=== PATIENT | female | born 1975 | race Caucasian/White ===

== ENCOUNTER 2018-06-24 10:10 | Inpatient (IN) | payer MEDICAID ==
[2018-06-24 10:54] LABS: BASO % 0.7 % (0.0-2.0); EOS # 0.1 K/uL (0.0-0.7); EOS % 1.9 % (0.0-4.0); HEMOGLOBIN 12.8 g/dL (11.0-16.0); LYMPH # 2.2 K/uL (1.0-4.3); LYMPH % 30.6 % (20.0-40.0); MEAN CELL VOLUME 84.9 fL (81.0-99.0); MEAN CORPUSCULAR HEMOGLOBIN 29.4 pg (27.0-31.0); MEAN CORPUSCULAR HGB CONC 34.7 g/dL (33.0-37.0); MEAN PLATELET VOLUME 7.5 fL (7.2-11.7); MONO # 0.6 K/uL (0.0-0.8); MONO % 8.1 % (0.0-10.0); NEUT # 4.1 K/uL (1.8-7.0); NEUT % 58.7 % (50.0-75.0); RBC 4.34 Mil/uL (3.80-5.20); RED CELL DISTRIBUTION WIDTH 13.4 % (11.5-14.5); WHITE BLOOD COUNT 7.1 K/uL (4.8-10.8)
[2018-06-24 11:07] LABS: ALB/GLOB RATIO 1.1 (1.0-2.1); ALBUMIN 4.5 g/dL (3.5-5.0); ALT/SGPT 12 U/L (9-52); AST/SGOT 21 U/L (14-36); BLOOD UREA NITROGEN 11 mg/dL (7-17); CALCIUM 9.3 mg/dl (8.6-10.4); GFR AFRICAN-AMERICAN > 60; GFR NON-AFRICAN AMERICAN > 60
[2018-06-24 11:37] LABS: HCG,QUALITATIVE URINE NEGATIVE (NEGATIVE)
[2018-06-24 11:46] LABS: SQUAMOUS EPITHIAL 38 /hpf (0-5); URINE BACTERIA RARE (<OCC); URINE BILIRUBIN NEGATIVE (NEGATIVE); URINE BLOOD 3+ (NEGATIVE); URINE CLARITY Hazy (Clear); URINE COLOR Amber (YELLOW); URINE GLUCOSE (UA) NORMAL (Normal); URINE LEUKOCYTE ESTERASE 1+ Leu/uL (Negative); URINE PROTEIN 2+ mg/dL (NEGATIVE)
[2018-06-24 11:47] LABS: BENZODIAZEPINES, UR NEGATIVE (NEGATIVE); PHENCYCLIDINE, UR NEGATIVE (NEGATIVE)
--- NOTE | 2018-06-24 11:53 | C.PDOC ---
History Of Present Illness 42 year old female presents to ED requesting detox from heroin and alcohol. Last use was today. Denies any active physical complaints at this time. Time Seen by Provider: 06/24/18 10:25 Chief Complaint (Nursing): Substance Abuse History Per: Patient History/Exam Limitations: no limitations Suicide/Self Injury Attempted (Context): None Modifying Factor(s): Alcohol Severity: None Pain Scale Rating Of: 0 Associated Symptoms: denies: Suicidal Thoughts, Suicidal Plan Involuntary Hold By: None Recent travel outside of the [place]: No Additional History Per: Patient Past Medical History Reviewed: Historical Data, Nursing Documentation, Vital Signs Vital Signs: Last Vital Signs Temp 97.7 F 06/24/18 13:18 Pulse 62 06/24/18 13:18 Resp 17 06/24/18 13:18 BP 100/63 06/24/18 13:18 Pulse Ox 99 06/24/18 13:18 Family History: States: Unknown Family Hx - Social History Hx Alcohol Use: Yes Hx Substance Use: Yes - Immunization History Hx Tetanus Toxoid Vaccination: Yes Hx Influenza Vaccination: No Hx Pneumococcal Vaccination: No Review Of Systems Except As Marked, All Systems Reviewed And Found Negative. Constitutional: Negative for: Fever, Chills Cardiovascular: Negative for: Chest Pain, Palpitations Respiratory: Negative for: Cough, Shortness of Breath Gastrointestinal: Negative for: Nausea, Vomiting, Abdominal Pain Neurological: Negative for: Headache, Dizziness Psych: Negative for: Suicidal ideation Physical Exam - Physical Exam Appears: Non-toxic, No Acute Distress Skin: Normal Color, Warm, Dry Head: Atraumatic, Normacephalic Eye(s): bilateral: Normal Inspection Oral Mucosa: Moist Neck: Normal ROM, Supple Cardiovascular: Rhythm Regular, No Murmur Respiratory: Normal Breath Sounds, No Rales, No Rhonchi, No Wheezing Gastrointestinal/Abdominal: Soft, No Tenderness Extremity: Normal ROM Neurological/Psych: Oriented x3, Normal Speech ED Course And Treatment - Laboratory Results Result Diagrams: 06/24/18 10:50 06/24/18 10:50 O2 Sat by Pulse Oximetry: 98 (RA) Pulse Ox Interpretation: Normal Medical Decision Making Medical Decision Making: Impression: 42 year old male requesting detox from alcohol and heroin. Plan: * Blood work * Urinalysis * Motrin, Nicoderm * Crisis evaluation Labs reviewed. Patient has UTI. Bactrim PO ordered. Recommend Bactrim BID for 5 days. Patient evaluated by crisis. In my clinical judgment patient is medically cleared and stable for psychiatric admission. Patient accepted to detox service by Dr Dunne Disposition - Disposition Disposition: HOSPITALIZED Disposition Time: 13:00 Condition: STABLE - POA Present On Arrival: None - Clinical Impression Clinical Impression: Opiate use, Alcohol abuse, Depressive disorder - PA / CHANGE NUMBER OPERATOR / Resident Statement MD/DO has reviewed & agrees with the documentation as recorded. - Scribe Statement The provider has reviewed the documentation as recorded by the Scribe Leisa Aguilar All medical record entries made by the Homaibge were at my direction and personally dictated by me. I have reviewed the chart and agree that the record accurately reflects my personal performance of the history, physical exam, medical decision making, and the department course for this patient. I have also personally directed, reviewed, and agree with the discharge instructions and disposition. Decision To Admit - Pt Status Changed To: Hospital Disposition Of: Inpatient - Admit Certification Admit to Inpatient:: After my assessment, the patient will require hospitalization for at least two midnights. This is because of the severity of symptoms shown, intensity of services needed, and/or the medical risk in this patient being treated as an outpatient. - InPatient: Physician Admission Certification: I certify that this patient requires 2 or more midnights of care for the following reason:: Patient admitted to detox service - . Bed Request Type: Detox Admitting Physician: Donna Dunne Patient Diagnosis: Opiate use, Alcohol abuse, Depressive disorder
[2018-06-24 12:06] LABS: BARBITURATES, UR POSITIVE (NEGATIVE); OPIATES, UR POSITIVE (NEGATIVE)
[2018-06-24] MEDS ORDERED: Tmp-Smz 800 mg-160 mg DS Tab PO STA (12:56)
[2018-06-24] MEDS ORDERED: Tmp-Smz 800 mg-160 mg DS Tab ONE (13:17)
--- NOTE | 2018-06-24 13:29 | PCM.BM ---
<David Garcia - Last Filed: 06/24/18 13:28> Treatment assets and liabiliti Patient Assests: cooperative, insightful, ADL independent Patient Liabilities: poor support system, substance abuse - Milieu Protocol Maintain good personal hygiene: daily Encourage regular showers, every shift Remind patient to perform daily oral care, every shift Assist patient to perform ADL's Maintain personal safety: every shift Educate patient to report safety concerns to staff, every shift Monitor environment for contraband/sharps Medication safety: Monitor for expected outcome, potential side effects: every shift, Assess barriers to learning: every shift, Assess readiness for medication education: every shift <Karen Kumar - Last Filed: 06/25/18 15:36> Family Contact Family involvement: No known Family/SO - Goals for Treatment Patient goals for treatment: COMPLETE DETOX AND APPLY FOR LONG-TERM REHAB. Discharge/Continuing Care - Education Needs Education Needs: Patient Medication, Patient Diagnosis/Disease Process, Patient Coping Skills, Patient Anger Management skills, Patient Placement options, Patient Community resources - Discharge Discharge Criteria: No longer exhibiting s/s of withdrawal, Reduction of target symptoms Discharge to:: Substance Abuse Rehab - Treatment Team Participation Patient/Family/SO Statement: 06/25/18 15:35 "I CAN'T GO BACK ONTO THE STREETS...I NEED SKILLED NURSING..." Discussed with Family/SO: No Was Patient/Family/SO present at Treatment Team Meeting: Yes
[2018-06-24] MEDS ORDERED: Pneumococcal 23-Valent Vaccine IM ONE (14:34)
[2018-06-24] MEDS ORDERED: Vitamins A & D Oint UD Foilpak TOP PRN (16:42)
[2018-06-24 17:45] VITALS: RESP 18
--- NOTE | 2018-06-25 08:51 | PCM.PSYCH ---
Initial Psychiatric Evaluation - Initial Psychiatric Evaluation Type of Admission: Voluntary Legal Status: Capacity Chief Complaint (in patient's own words): "I need help" History of Present Illness and Precipitating Events: Pt is a 42 y/o female, , has two children aged 4 and 17 y/o - she claims her mother was given custody. She is homeless now, but otherwise lives in father 's apartment. She was laid off in September 2017, was living off unemployment until now, but finished. She states she was clean for about a year until her 4 years ago after which she relapsed. Admits to shooting up 25-30 bags of heroin with the last use at 8 am yesterday, uses oxycontin pills too, cocaine by smoking and shooting. Pt denies barbiturate usage but tested positive on the drug screen which she thinks could have been in the heroin, she has also been drinking a pint of alcohol a day since she was 35. Pt has been in detox about 7 times last one being 6 months ago and has gone to rehab once in [place], was in [facility] for methadone maintenance but she was still using so it didn't help her. She was seen for her OCD by her psychiatrist in [place] before she ever started using drugs, and she is on Abilify for stabilizing her mood. Denies suicide attempts, no family history of drug abuse but says that mom was an alcoholic. She mentions being currently homeless since she has access to drugs very easily otherwise she lives at her Dad's apartment with her two kids that are 4 and 17, currently staying with their grandmother. Denies and medical issues except with withdrawal symptoms Current Medications: Active Medications Generic Name Dose Route Start Last Admin Trade Name Freq PRN Reason Stop Dose Admin Chlordiazepoxide 25 mg 06/24/18 14:36 06/24/18 22:11 Librium PO 25 mg Q4H PRN Administration Alcohol Withdrawal Clonidine HCl 0.1 mg 06/24/18 14:33 Catapres PO Q8 PRN COWS Score More or Equal to 5 Hydroxyzine HCl 25 mg 06/24/18 14:34 06/24/18 22:11 Atarax PO 25 mg Q6H PRN Administration Anxiety Ibuprofen 600 mg 06/24/18 14:33 06/24/18 22:11 Motrin Tab PO 600 mg TID PRN Administration Pain, moderate (4-7) Loperamide HCl 2 mg 06/24/18 14:33 Imodium PO Q8 PRN Diarrhea Ondansetron HCl 4 mg 06/24/18 14:33 Zofran Tab PO Q8 PRN Nausea/Vomiting Trazodone HCl 50 mg 06/24/18 14:35 06/24/18 22:11 Desyrel PO 50 mg HS PRN Administration Insomnia Vitamin A 1 ea 06/24/18 16:42 06/24/18 22:12 Vitamin A & D Oint Ud Foilpak TOP 1 ea Q8 PRN Administration Dry skin Past Psychiatric History - Past Psychiatric History Previous Treatment History: None Pertinent Medical Hx (Current Medical&Sleep Prob, Allergies): Allergies Allergy/AdvReac Type Severity Reaction Status Date / Time No Known Allergies Allergy Unverified 06/24/18 10:16 No Known Home Med 06/24/18 Review of Systems - Neurological Neurological: UNREMARKABLE - Psychiatric Psychiatric: Abnormal Sleep Pattern, Anxiety, Depression, Difficulty Concentrating, Irritability, Mood Swings. absent: Hallucinations, Homicidal Ideation, Panic Attacks, Paranoia, Suicidal Ideation Mental Status Examination - Personal Presentation Personal Presentation: Looks stated age - Affect Affect: Constricted - Motor Activity Motor Activity: Calm - Reliability in Providing Information Reliability in Providing Information: Good - Speech Speech: Organized - Mood Mood: Depressed, Anxious - Formal Thought Process Formal Thought Process: No Impairment - Cognitive Functions Orientation: Person, Place, Situation, Time Sensorium: Alert Attention/Concentration: Easily distracted Estimate of Intelligence: Average Judgement: Intact, as evidence by: Insight regarding need for hospitalization Memory: Recent intact, as evidence by: Ability to recall events of the day, Remote intact, as evidenced by: Abilit to recall sig. life events - Risk Risk: Withdrawal, Diminished functioning - Strength & Assets Inventory Strength & Assets Inventory: Cooperative - Limitations Limitations: Other DSM 5 DX - DSM 5 DSM 5 Diagnosis: OPioid withdrawal Opioid use disorder, severe Alcohol withdrawal Alcohol use disorder - severe Major depression, recurrent, moderate DEL - Recommended/Plan of Treatment Treatment Recommendations and Plan of Treatment: Methadone detox As needed medications Gabapentin for augmentation if needed All risks, benefits and alternatives of medications, including no medications, discussed and the patient understood and agreed. Attend groups and activities Supportive therapy and psychoeducation NE for abstinence CBT for relapse prevention Encourage MAT Refer to rehab or IOP Attend self-help groups as well NE for smoking cessation and patch if needed 34 min Projected ELOS: 4-5 days - Smoking Cessation Smoking Cessation Initiated: Yes
[2018-06-25 14:14] VITALS: BP 105/65; PULSE 50; TEMP 98.8; O2SAT 100
--- NOTE | 2018-06-25 17:53 | PCM.PYCHDC ---
Mental Status Examination - Mental Status Examination Orientation: Person Discharge Summary - Discharge Note Consultations:: List each consultation separately and include: 1. Reason for request. 2. Findings. 3. Follow-up Summary of Hospital Course include:: 1. Description of specific treatment plan utilized for patients during their course of treatmen. 2. Summarize the time- course for resolution of acute symptoms and/or regressed behaviors. 3. Describe issues identified and worked on during hospitalization. 4. Describe medication utilized. 5. Describe medical problems identified and treated. 6. Reassessment of suicide risk Summary of Hospital Course: Pt is a 42 y/o female, , has two children aged 4 and 17 y/o - she claims her mother was given custody. She is homeless now, but otherwise lives in father 's apartment. She was laid off in September 2017, was living off unemployment until now, but finished. She states she was clean for about a year until her 4 years ago after which she relapsed. Admits to shooting up 25-30 bags of heroin with the last use at 8 am yesterday, uses oxycontin pills too, cocaine by smoking and shooting. Pt denies barbiturate usage but tested positive on the drug screen which she thinks could have been in the heroin, she has also been drinking a pint of alcohol a day since she was 35. Pt has been in detox about 7 times last one being 6 months ago and has gone to rehab once in [place], was in [facility] for methadone maintenance but she was still using so it didn't help her. She was seen for her OCD by her psychiatrist in [place] before she ever started using drugs, and she is on Abilify for stabilizing her mood. Denies suicide attempts, no family history of drug abuse but says that mom was an alcoholic. She mentions being currently homeless since she has access to drugs very easily otherwise she lives at her Dad's apartment with her two kids that are 4 and 17, currently staying with their grandmother. Denies and medical issues except with withdrawal symptoms - Final Diagnosis (DSM 5) Condition upon Discharge: STABLE Disposition: AGAINST MEDICAL ADVICE Follow-up Treatment Plan: Methadone detox As needed medications Gabapentin for augmentation if needed All risks, benefits and alternatives of medications, including no medications, discussed and the patient understood and agreed. Attend groups and activities Supportive therapy and psychoeducation [place] for abstinence CBT for relapse prevention Encourage MAT Refer to rehab or IOP Attend self-help groups as well ME for smoking cessation and patch if needed 34 min
== END 2018-06-25 17:04 | disposition left against medical advice (07) | DRG 743 ==
LOC: C.ER 10:10 → C.7D 12:55
PROVIDERS: ADMIT Psychiatry & Neurology Psychiatry; ATTEND Psychiatry & Neurology Psychiatry
PROC: HZ2ZZZZ Detoxification Services for Substance Abuse Treatment (ICD-10-PCS; principal; 2018-06-24)
DX: F11.23 Opioid dependence with withdrawal (principal); F33.1 Major depressive disorder, recurrent, moderate; F10.239 Alcohol dependence with withdrawal, unspecified; F14.10 Cocaine abuse, uncomplicated; F13.10 Sedative, hypnotic or anxiolytic abuse, uncomplicated; F42.9 Obsessive-compulsive disorder, unspecified; Z59.0 Homelessness

== ENCOUNTER 2018-08-29 20:22 | Inpatient (IN) | payer MEDICAID ==
[2018-08-29 21:35] VITALS: BMI 20.7
[2018-08-29 22:29] LABS: BASO # 0.1 K/uL (0.0-0.2); BASO % 1.2 % (0.0-2.0); EOS % 0.8 % (0.0-4.0); HEMOGLOBIN 12.2 g/dL (11.0-16.0); LYMPH # 2.3 K/uL (1.0-4.3); MEAN CORPUSCULAR HEMOGLOBIN 28.2 pg (27.0-31.0); MEAN CORPUSCULAR HGB CONC 33.2 g/dL (33.0-37.0); MEAN PLATELET VOLUME 7.6 fL (7.2-11.7); MONO # 0.5 K/uL (0.0-0.8); MONO % 7.5 % (0.0-10.0); NEUT # 3.3 K/uL (1.8-7.0); NEUT % 53.5 % (50.0-75.0); NRBC % 0.1 % (0.0-2.0); RBC 4.35 Mil/uL (3.80-5.20); RED CELL DISTRIBUTION WIDTH 14.1 % (11.5-14.5); WHITE BLOOD COUNT 6.2 K/uL (4.8-10.8)
[2018-08-29 22:44] LABS: ALB/GLOB RATIO 1.1 (1.0-2.1); ALBUMIN 4.3 g/dL (3.5-5.0); ALT/SGPT 7 U/L (9-52); AST/SGOT 21 U/L (14-36); BLOOD UREA NITROGEN 10 mg/dL (7-17); CALCIUM 9.2 mg/dl (8.6-10.4); GFR NON-AFRICAN AMERICAN > 60
[2018-08-29 22:47] LABS: HCG,QUALITATIVE URINE NEGATIVE (NEGATIVE); SQUAMOUS EPITHIAL 20 /hpf (0-5); URINE BACTERIA OCC (<OCC); URINE BILIRUBIN NEGATIVE (NEGATIVE); URINE BLOOD 1+ (NEGATIVE); URINE CLARITY Hazy (Clear); URINE COLOR Amber (YELLOW); URINE GLUCOSE (UA) NORMAL (Normal); URINE LEUKOCYTE ESTERASE 1+ Leu/uL (Negative); URINE PROTEIN NEGATIVE (NEGATIVE)
[2018-08-29 22:48] LABS: BARBITURATES, UR NEGATIVE (NEGATIVE); PHENCYCLIDINE, UR NEGATIVE (NEGATIVE)
[2018-08-29 22:49] LABS: BENZODIAZEPINES, UR POSITIVE (NEGATIVE); OPIATES, UR POSITIVE (NEGATIVE)
--- NOTE | 2018-08-29 23:06 | C.PDOC ---
History Of Present Illness 42 year old female presents to the ED requesting detox from heroin. Patient denies SI/Hi, hallucinations, CP, palpitations, SOB, nausea, vomit, diarrhea, rash, weakness, numbness. Time Seen by Provider: 08/29/18 21:58 Chief Complaint (Nursing): Substance Abuse History Per: Patient History/Exam Limitations: no limitations Onset/Duration Of Symptoms: Days Current Symptoms Are (Timing): Still Present Suicide/Self Injury Attempted (Context): None Modifying Factor(s): Other (Heroin) Severity: None Associated Symptoms: denies: Depression, Suicidal Thoughts, Suicidal Plan Involuntary Hold By: None Recent travel outside of the [place]: No Additional History Per: Patient Past Medical History Reviewed: Historical Data, Nursing Documentation, Vital Signs Vital Signs: Last Vital Signs Temp 98.3 F 08/29/18 20:30 Pulse 77 08/29/18 20:30 Resp 16 08/29/18 20:30 BP 125/82 08/29/18 20:30 Pulse Ox 99 08/29/18 20:30 - Medical History PMH: No Chronic Diseases Denies: Diabetes, Hepatitis, HIV, HTN, Seizures, Sexually Transmitted Disease Surgical History: No Surg Hx - [facility] DETOXIFICATION SERVICES FOR SUBSTANCE ABUSE TREATMENT (06/24/18) Family History: States: Unknown Family Hx - Social History Hx Alcohol Use: Yes Hx Substance Use: Yes - Immunization History Hx Tetanus Toxoid Vaccination: Yes Hx Influenza Vaccination: No Hx Pneumococcal Vaccination: No Review Of Systems Constitutional: Negative for: Fever, Chills Cardiovascular: Negative for: Chest Pain Respiratory: Negative for: Shortness of Breath Gastrointestinal: Negative for: Nausea, Vomiting Skin: Negative for: Rash Psych: Negative for: Depression, Suicidal ideation Physical Exam - Physical Exam Appears: Non-toxic, No Acute Distress Skin: Normal Color, Warm, Dry, No Rash Head: Atraumatic, Normacephalic Eye(s): bilateral: Normal Inspection Oral Mucosa: Moist Neck: Normal ROM, Supple Chest: Symmetrical, No Tenderness Cardiovascular: Rhythm Regular, No Friction Rub, No Murmur Respiratory: Normal Breath Sounds, No Rales, No Rhonchi, No Wheezing Gastrointestinal/Abdominal: Soft, No Tenderness, No Guarding, No Rebound Extremity: Normal ROM, No Tenderness, No Swelling Neurological/Psych: Oriented x3, Normal Speech, Normal Motor Gait: Steady ED Course And Treatment - Laboratory Results Result Diagrams: 08/29/18 22:25 08/29/18 22:25 O2 Sat by Pulse Oximetry: 99 (ON RA) Pulse Ox Interpretation: Normal Medical Decision Making Medical Decision Making: Plan: * Labs * UA * Crisis evaluation The patient is medically cleared for psych eval or admission. Psych oncall contacted and they agree to admit the patient to the psych floor. Disposition - Disposition Disposition: HOSPITALIZED Disposition Time: 00:00 Condition: STABLE - POA Present On Arrival: None - Clinical Impression Clinical Impression: Drug dependence, Opiate dependence - PA / LEGAL COLLECTOR / Resident Statement MD/DO has reviewed & agrees with the documentation as recorded. - Scribe Statement The provider has reviewed the documentation as recorded by the Scribe Johnathon Biggs All medical record entries made by the Scribe were at my direction and personally dictated by me. I have reviewed the chart and agree that the record accurately reflects my personal performance of the history, physical exam, medical decision making, and the department course for this patient. I have also personally directed, reviewed, and agree with the discharge instructions and disposition.
--- NOTE | 2018-08-30 00:54 | PCM.BM ---
Treatment Plan Problems - Problems identified on initial assessmt Ineffective Coping Skills Date Initiated: 08/30/18 Time Initiated: 00:53 Assessment reference: NA Status: Active Treatment assets and liabiliti Patient Assests: cooperative, insightful, ADL independent Patient Liabilities: live alone, financial problems, poor support system, substance abuse, medical problems, other - Milieu Protocol Maintain good personal hygiene: daily Encourage regular showers, daily Remind patient to perform daily oral care, other Assist patient to perform ADL's (PRN) Conduct patient checks and document Observation sheet: Q15 minutes Maintain personal safety: every shift Educate patient to report safety concerns to staff, every shift Monitor environment for contraband/sharps Medication safety: Monitor for expected outcome, potential side effects: every s hift, Assess barriers to learning: every shift, Assess readiness for medication education: every shift
[2018-08-30] MEDS ORDERED: Aluminum Hydroxide/Magnesium Hydroxide Susp (30 mL) PO PRN (08:28)
[2018-08-30] MEDS: Multiple Vitamins Tab PO SCH (09:47)
--- NOTE | 2018-08-30 13:35 | PCM.PSYCH ---
Addendum entered and electronically signed by Andree Morel MD 08/30/18 22:17: Pt seen and evaluated. Agree with the findings of the resident. Original Note: Initial Psychiatric Evaluation - Initial Psychiatric Evaluation Type of Admission: Voluntary Legal Status: Capacity Chief Complaint (in patient's own words): "I want to detox." History of Present Illness and Precipitating Events: Patient scene, chart reviewed, case discussed with team. Ms. Ford is a 42 year old female, with 2 children (4 and 17yo) who are with her mother who has custody. She is homeless now but otherwise lives with in her father's apartment. She was laid off in September 2017 and hasn't been working since then and living off unemployment. She was here in May when she signed out AMA and immediately began using again. She was clean for about a year until her 4 years ago, after which she relapsed. Admits to shooting up 25-30 bags of heroin with the last use at 2 pm yesterday, uses oxycontin pills, smokes and shoots cocaine 4 times a week, and drinks 2 pints of vodka daily. Smokes 1/2 ppd. Patient has been in detox about 8 times, last one being in May at [facility] and has gone to rehab once in [place], was in [facility] for methadone maintenance but she was still using so it didn't help her. She was seen for her OCD by her psychiatrist in [place] before she ever started using drugs, denies being on any medication, including the Abilify for stabilizing her mood her previous admission. Denies suicide attempts, no family history of drug abuse but says that mom was an alcoholic. She mentions being currently homeless since she has access to drugs very easily. PMH: denies Psych: OCD on Abilify FamHx: mother - EtOH ED: BAL <10, UDS + for opiate, benzos, cocaine Current Medications: Active Medications Generic Name Dose Route Start Last Admin Trade Name Freq PRN Reason Stop Dose Admin Al Hydrox/Mg Hydrox/Simethicone 30 ml 08/30/18 08:28 Maalox 30 Ml PO TID PRN Indigestion / Heartburn Chlordiazepoxide 25 mg 08/30/18 10:00 08/30/18 09:47 Librium PO 09/03/18 09:59 25 mg Q6 JOHN Administration Taper Chlordiazepoxide 25 mg 08/30/18 08:27 Librium PO Q4H PRN Alcohol Withdrawal Clonidine HCl 0.1 mg 08/30/18 08:28 Catapres PO Q6H PRN Withdrawal Symptoms Dicyclomine HCl 10 mg 08/30/18 01:02 Bentyl PO Q6H PRN Muscle spasm Folic Acid 1 mg 08/30/18 10:00 08/30/18 09:47 Folic Acid PO 1 mg DAILY JOHN Administration Hydroxyzine HCl 25 mg 08/30/18 01:00 08/30/18 01:28 Atarax PO 25 mg Q6H PRN Administration Agitation Loperamide HCl 2 mg 08/30/18 08:29 Imodium PO Q8 PRN Diarrhea Multivitamins 1 tab 08/30/18 10:00 08/30/18 09:47 Hexavitamin PO 1 tab DAILY JOHN Administration Ondansetron HCl 4 mg 08/30/18 01:01 Zofran Odt PO Q8H PRN Nausea/Vomiting Thiamine HCl 100 mg 08/30/18 10:00 08/30/18 09:47 Vitamin B1 Tab PO 100 mg DAILY JOHN Administration Trazodone HCl 50 mg 08/30/18 01:00 08/30/18 01:28 Desyrel PO 50 mg HS PRN Administration Insomnia Past Psychiatric History - Past Psychiatric History Pertinent Medical Hx (Current Medical&Sleep Prob, Allergies): Allergies Allergy/AdvReac Type Severity Reaction Status Date / Time No Known Allergies Allergy Unverified 06/24/18 10:16 No Known Home Med 06/24/18 Review of Systems - Psychiatric Psychiatric: Abnormal Sleep Pattern, Anxiety, Depression, Hopelessness, Irritability. absent: Auditory Hallucinations, Hallucinations, Homicidal Ideation, Suicidal Ideation, Visual Hallucinations Mental Status Examination - Personal Presentation Personal Presentation: Looks older than stated age - Affect Affect: Constricted - Motor Activity Motor Activity: Psychomotor Agitation - Reliability in Providing Information Reliability in Providing Information: Fair - Speech Speech: Disorganized, Relevant - Mood Mood: Depressed, Anxious - Formal Thought Process Formal Thought Process: Loosening of associations - Cognitive Functions Orientation: Person, Place, Time Sensorium: Drowsy Attention/Concentration: Easily distracted Estimate of Intelligence: Average Judgement: Imparied, as evidence by: Poor judgement, Imparied, as evidence by: Lack of insight into illness Memory: Recent impaired, as evidence by: Inability to recall events of the day, Remote impaired as evidenced by: Inability to recall historical events - Risk Risk: Withdrawal, Diminished functioning DSM 5 DX - DSM 5 DSM 5 Diagnosis: Opioid use disorder - severe Opioid withdrawal Alcohol use disorder - severe Alcohol withdrawal Cocaine use disorder - severe Benzo abuse Major depression, recurrent, moderate Generalized anxiety disorder - Recommended/Plan of Treatment Treatment Recommendations and Plan of Treatment: Methadone taper once starts to display withdrawal symptoms, last use too recent to score COWS score Librium taper Folic acid, MVI, thiamine As needed medications All risks, benefits and alternatives of medications, including no medications, discussed and the patient understood and agreed Attend groups and activities Supportive therapy and psychoeducation ID for abstinence CBT for relapse prevention Encourage MAT Refer to rehab or IOP Attend self-help groups as well ID for smoking cessation and patch if needed 34 min Projected ELOS: 4-5 days - Smoking Cessation Smoking Cessation Initiated: Yes
[2018-08-30 20:05] VITALS: O2SAT 100
[2018-08-31] MEDS: Multiple Vitamins Tab PO SCH (10:01)
--- NOTE | 2018-08-31 13:36 | PCM.PYCHPN ---
Psychiatric Progress Note - Psychiatric Progress Note Patient seen today, length of contact: 31 min Medication Change: Yes Medical Record Reviewed: Yes Mental Status Examination - Cognitive Function Orientation: Person, Place, Time - Mood Mood: Depressed, Anxious - Affect Affect: Constricted - Formal Thought Process Formal Thought Process: Loosening of associations - Homicidal Ideation Homicidal Ideation: No
[2018-08-31 13:54] VITALS: BP 113/75; PULSE 58; RESP 18; TEMP 98.6
--- NOTE | 2018-08-31 14:36 | PCM.PYCHDC ---
Mental Status Examination - Mental Status Examination Orientation: Person, Place, Situation, Time Memory: Intact Mood: Anxious Affect: Constricted Speech: Appropriate Attention: WNL Concentration: WNL Association: WNL Fund of Knowledge: WNL Formal Thought Process: No Impairment Suicidal Ideation: No Current Homicidal Ideation?: No Discharge Summary - Discharge Note Reason for Hospitalization: Opioid detox Consultations:: List each consultation separately and include: 1. Reason for request. 2. Findings. 3. Follow-up Summary of Hospital Course include:: 1. Description of specific treatment plan utilized for patients during their course of treatmen. 2. Summarize the time- course for resolution of acute symptoms and/or regressed behaviors. 3. Describe issues identified and worked on during hospitalization. 4. Describe medication utilized. 5. Describe medical problems identified and treated. 6. Reassessment of suicide risk Summary of Hospital Course: The pt was admitted and started on treatment with psychotherapy, support, psycho-education and medications. Mi used, support given All the risks and benefits of medications are discussed and the patient understood and agreed. The pt asked for d/c AMA next day Risks of leaving AMA incl. relapse and even discussed and she still left - Final Diagnosis (DSM 5) Condition upon Discharge: STABLE DSM 5: Opioid use disorder - severe Opioid withdrawal Alcohol use disorder - severe Alcohol withdrawal Cocaine use disorder - severe Benzo abuse Major depression, recurrent, moderate Generalized anxiety disorder Disposition: AGAINST MEDICAL ADVICE Follow-up Treatment Plan: Use relapse prevention skills Return to ER or call 911 if suicidal, homicidal or symptoms relapse. Stay away from stress, alcohol and drugs. See primary doctor regularly and get labs.
== END 2018-08-31 14:45 | disposition left against medical advice (07) | DRG 770 ==
LOC: C.ER 20:22 → C.7D 08-30 00:17
PROVIDERS: ADMIT Psychiatry & Neurology Psychiatry; ATTEND Psychiatry & Neurology Psychiatry
PROC: HZ2ZZZZ Detoxification Services for Substance Abuse Treatment (ICD-10-PCS; principal; 2018-08-30)
PROC: HZ52ZZZ Individual Psychotherapy for Substance Abuse Treatment, Cognitive-Behavioral (ICD-10-PCS; 2018-08-30)
PROC: HZ59ZZZ Individual Psychotherapy for Substance Abuse Treatment, Supportive (ICD-10-PCS; 2018-08-30)
PROC: HZ56ZZZ Individual Psychotherapy for Substance Abuse Treatment, Psychoeducation (ICD-10-PCS; 2018-08-30)
PROC: GZ58ZZZ Individual Psychotherapy, Cognitive-Behavioral (ICD-10-PCS; 2018-08-30)
PROC: GZ56ZZZ Individual Psychotherapy, Supportive (ICD-10-PCS; 2018-08-30)
DX: F11.23 Opioid dependence with withdrawal (principal); F33.1 Major depressive disorder, recurrent, moderate; F10.230 Alcohol dependence with withdrawal, uncomplicated; Y90.0 Blood alcohol level of less than 20 mg/100 ml; F14.20 Cocaine dependence, uncomplicated; F13.10 Sedative, hypnotic or anxiolytic abuse, uncomplicated; F17.210 Nicotine dependence, cigarettes, uncomplicated; F41.1 Generalized anxiety disorder; F42.9 Obsessive-compulsive disorder, unspecified; Z59.0 Homelessness